=== PATIENT | female | born 1995 | race Hispanic/Latino ===

== ENCOUNTER 2022-07-09 08:46 | Emergency (ER) | payer SELFPAY ==
[2022-07-09] VITALS (7 sets, daily range): BP systolic 98–131; BP diastolic 60–72
[~2022-07-09] VITALS: Ht 147.3 cm; Wt 47.8 kg
[2022-07-09] MEDS ORDERED: KEFLEX500 MG PO (11:26)
== END 2022-07-09 11:35 | disposition home or self-care (01) | DRG 603 ==
LOC: ED 08:46
DX: L02.31 Cutaneous abscess of buttock (principal); L03.317 Cellulitis of buttock